=== PATIENT | male | born 1930 | race African-American/Black ===

== ENCOUNTER → 2016-08-08 | Outpatient (CLI) | payer MEDICARE, BC ==
[2015-01-10 14:05] VITALS: BP 119/63
[~2016-08-08] MED LIST: ASPI-482 PO; CARV25TA PO; CYANOCOBALAMIN IM; DOCU-109 PO; FAMO-63 PO; FERR-26 PO; GLIP5TAB22 PO; LEVO75TA PO; LOSA100T2 PO; METF10002 PO; METF500T4 PO; NITR0.4T SL; OMEP40CA5 PO; POLY17PO5 PO; PRAV40TA PO; RANI150T6 PO; RIVA15TA PO; SUCR1ORA11 PO
[2016-08-08 10:04] LABS: ALBUMIN 3.5 g/dL (3.4-5.0); GFR 85.9; POTASSIUM 4.3 mmol/L (3.5-5.1); TOTAL BILIRUBIN 0.5 mg/dL (0.2-1.0)
[2016-08-08 16:57] LABS: FREE T4 1.36 ng/dL (0.76-1.46); THYROID STIM HORMONE (TSH) 1.116 uIU/mL (0.358-3.740)
== END | disposition home or self-care (01) ==
LOC: LAB 08:18
PROVIDERS: ATTEND Internal Medicine Endocrinology, Diabetes & Metabolism
DX: E11.9 Type 2 diabetes mellitus without complications (principal); E78.5 Hyperlipidemia, unspecified; E03.8 Other specified hypothyroidism
CPT/HCPCS: 36415; 80053; 80061; 82043; 84439; 84443

== ENCOUNTER → 2017-12-08 | Outpatient (CLI) | payer MEDICARE, BC ==
[2015-01-10 14:05] VITALS: BP 119/63
[~2017-12-08] MED LIST changes: -FERR-26 PO; +FERR325T14 PO; -METF10002 PO; +METF10007 PO; +METF500T16 PO; -METF500T4 PO; +RANI150T21 PO; -RANI150T6 PO
--- NOTE | 2017-12-08 10:31 | RAD ---
Abdominal ultrasound, 12/08/2017: HISTORY: Diarrhea The gallbladder is not well distended. No gallstones are seen. The common hepatic duct is at the upper limits of normal measuring 6-7 mm. No intrahepatic bile duct dilatation is seen. There is no evidence of a hepatic mass. The pancreas was not clearly defined. The spleen is of normal size. There is a mildly prominent extrarenal pelvis on the right. There is no evidence of hydronephrosis or a renal mass. The abdominal aorta is of normal caliber. The inferior vena cava is unremarkable. No free fluid is evident in the abdomen. IMPRESSION: No significant abdominal abnormality is detected. Electronically signed by: Juan Ramon Lyn MD (12/08/2017 10:27 AM) [facility]
== END | disposition home or self-care (01) ==
LOC: US 08:40
PROVIDERS: ATTEND Family Medicine
DX: R19.7 Diarrhea, unspecified (principal)
CPT/HCPCS: 76700

== ENCOUNTER → 2018-06-29 | Outpatient (CLI) | payer MEDICARE, BC ==
[2015-01-10 14:05] VITALS: BP 119/63
--- NOTE | 2018-06-29 12:26 | RAD ---
CT HEAD INDICATION: acute vision changes in right eye COMPARISON: 04/12/2011 Exposure: One or more of the following individualized dose reduction techniques were utilized for this examination: 1. Automated exposure control 2. Adjustment of the mA and/or kV according to patient size 3. Use of iterative reconstruction technique TECHNIQUE: 5 mm contiguous axial images were obtained from the skull base to the vertex in both bone and soft tissue algorithm. FINDINGS: Moderate bilateral periventricular white matter hypodensities likely chronic small vessel ischemic disease. No evidence of acute intracranial hemorrhage. No extra-axial fluid collections. No mass effect or midline shift. Ventricular size is appropriate. Basal cisterns are patent. No fractures identified.Dubois-white differentiation is preserved.Globes and orbits are within normal limits. Paranasal sinuses and mastoid air cells are clear. IMPRESSION: 1. No acute intracranial findings. 2. Moderate bilateral periventricular white matter hypodensities likely chronic small vessel ischemic disease. Electronically signed by: Hiren Lopes MD (06/29/2018 12:23 PM) [id number]
== END | disposition home or self-care (01) ==
LOC: CT 11:50
PROVIDERS: ATTEND Family Medicine
DX: R90.82 White matter disease, unspecified (principal); H53.8 Other visual disturbances
CPT/HCPCS: 70450

== ENCOUNTER → 2019-04-12 | Outpatient (CLI) | payer MEDICARE, BC ==
[2015-01-10 14:05] VITALS: BP 119/63
[~2019-04-12] MED LIST changes: -NITR0.4T SL; +NITR0.4T24 SL; +OMEP40CA45 PO; -OMEP40CA5 PO; +RANI-376 PO; -RANI150T21 PO; -SUCR1ORA11 PO; +SUCR1ORA14 PO
--- NOTE | 2019-04-12 17:45 | RAD ---
CHEST PA LATERAL History: Cough Comparison: 01/06/2015 two-view chest x-ray exam. Findings: Frontal and lateral views of the chest were obtained. Dual-lead left-sided pacemaker is present. The leads are intact and in place. The cardiomediastinal silhouette is normal. Pulmonary vasculature is normal. The lungs are clear. No pneumothorax. There is no acute bone abnormality. Pulmonary hyperinflation is present. Minimal costophrenic angle blunting which appear to represent small pleural effusions are new compared to the prior exam. Upper abdominal radiopaque density which may represent a surgical clip is present. Correlate with history. IMPRESSION: Small bilateral pleural effusions. No definite infiltrate. Electronically signed by: Surjit Paez MD (04/12/2019 5:42 PM) [id number]
== END | disposition home or self-care (01) ==
LOC: DXRAD 10:44
PROVIDERS: ATTEND Family Medicine
DX: J90 Pleural effusion, not elsewhere classified (principal); J20.8 Acute bronchitis due to other specified organisms
CPT/HCPCS: 71046